=== PATIENT | male | born 1950 | race Caucasian/White ===

== ENCOUNTER 2017-05-11 15:32 | Inpatient (IN) | payer OTHER ==
--- NOTE | 2017-05-11 15:46 | EDPHY ---
H & P Stated Complaint: hx chronic pain/hasn't had any percocet or lorazepam for 2 days n/v HPI/ROS: HPI CHIEF COMPLAINT: Nausea, vomiting, stops his Percocet, out of clonazepam HISTORY OF PRESENT ILLNESS: This patient is 66-year-old male, significant past medical history for chronic pain, and anxiety, hypertension, presents to the emergency room by private vehicle with acute nausea vomiting, diarrhea, cold sweats, abdominal pain hematemesis and bright red blood per rectum after he states he decided to stop taking his Percocet 2 days ago and also ran out of his clonazepam a week ago. Patient states that he thinks he is going through narcotic and benzo withdrawal. Tells me the purposely. His Percocet takes 7.5 mg twice a day. Decided to stop taking this medication on his own will. He abruptly stopped 2 days ago. After that he started developing nausea, vomiting, diarrhea, cold sweats, diffuse abdominal pain, and then today noticed hematemesis. And now has blood in his stool. Past Medical History: Hypertension, chronic pain, anxiety Past Surgical History: Denies recent surgical history Social History: Denies daily use of drugs alcohol tobacco products, former alcohol Family History: Noncontributory ROS REVIEW OF SYSTEMS: A comprehensive 10 point review of systems is otherwise negative aside from elements mentioned in the history of present illness. Exam Constitutional appears well nontoxic, triage nursing summary reviewed, vital signs reviewed, awake/alert. Eyes normal conjunctivae and sclera, EOMI, PERRLA. HENT normal inspection, atraumatic, moist mucus membranes, no epistaxis, neck supple/ no meningismus, no raccoon eyes. Respiratory clear to auscultation bilaterally, normal breath sounds, no respiratory distress, no wheezing. Cardiovascular not tachycardic , regular rhythm, no murmur, no edema, distal pulses normal. Gastrointestinal soft, diffuse tenderness , no rebound, no guarding, normal bowel sounds, no distension, no pulsatile mass. Genitourinary no CVA tenderness. Musculoskeletal no midline vertebral tenderness, full range of motion, no calf swelling, no tenderness of extremities, no meningismus, good pulses, neurovascularly intact. Skin pink, warm, & dry, no rash, skin atraumatic. Neurologic awake, alert and oriented x 3, AAOx3, moves all 4 extremities equally, motor intact, sensory intact, CN II-XII intact, normal cerebellar, normal vision, normal speech. Psychiatric normal mood/affect. Heme/Lymph/Immune no lymphadenopathy. Differential Diagnosis: Includes but is not limited to in a particular order benzo withdrawal, narcotic withdrawal, Rama-Munoz tear, GI bleed, dehydration , electrolyte disturbance, bowel obstruction Medical Decision Making: Plan for this patient IV establishment, IV fluid bolus 1 L normal saline, IV Zofran for nausea, IV Ativan for anxiety, check blood work, occult blood feces, stool studies, CT abdomen pelvis given vomiting and abdominal pain. The EKG due to tachycardia. Re-evaluation: EKG interpretation by me on record in [employer] system. Impression time of EKG 1631, sinus rhythm rate of 90, no prolonged intervals. No acute ischemia appreciated. CT scan of the abdomen pelvis with IV contrast The results of the study are negative for acute intra-abdominal abnormality. No free air, no bowel obstruction or free fluid.. The study was read by . I viewed the images myself on the PACS system. 174: With this patient be admitted to the hospital for acute nausea vomiting hematemesis blood in his stool dehydration, kidney injury, elevated troponin. This may be all due to withdrawal. Currently this time I did re-evaluate him he is feeling better. No acute distress. Vital signs stable. I did speak to the hospitalist service Dr. Vargas She agrees to admit the patient. 180: I spoke with Dr. Blancas with Gastroenterology. Will plan on seeing the patient. 183: Patient remains hemodynamically stable no acute distress. No vomiting blood here. H&H are stable. Hemodynamically stable. Feels better after Zofran, Protonix, Ativan. Source: Patient - Personal History Current Tetanus/Diphtheria Vaccine: Yes - Medical/Surgical History Hx Asthma: No Hx Chronic Respiratory Disease: No Hx Diabetes: No Hx Cardiac Disease: No Hx Renal Disease: No Hx Cirrhosis: No Hx Alcoholism: Yes Hx HIV/AIDS: No Hx Splenectomy or Spleen Trauma: No Other PMH: chronic pain/htn/anxiety pain meds per dr savage/comprehensive pain management - Social History Smoking Status: Never smoked Constitutional: Initial Vital Signs Temperature (C) 36.7 C 05/11/17 15:41 Heart Rate 128 H 05/11/17 15:41 Respiratory Rate 22 H 05/11/17 15:41 Blood Pressure 104/50 L 05/11/17 15:41 O2 Sat (%) 98 05/11/17 15:41 O2 Delivery Mode Nasal Cannula O2 (L/minute) 2 Allergies/Adverse Reactions: Penicillins Allergy (Verified 05/11/17 18:22) swelling Home Medications: Medication Instructions Recorded Amlodipine Besylate [Norvasc] 5 mg PO DAILY 05/11/17 clonAZEPAM [Klonopin] 1 - 2 mg PO DAILY PRN 05/11/17 oxyCODONE HCL/ACETAMINOPHEN 1 each PO BID PRN 05/11/17 [Percocet 7.5-325 mg Tablet] Medical Decision Making - Diagnostics Imaging Results: Imaging Impressions Abdomen CT 05/11/17 16:06 Impression: 1. Bilateral nephrolithiasis, without hydronephrosis. 2. Lumbar degenerative disk disease, and mild dextroscoliosis. 3. Diverticulosis of sigmoid colon. I telephoned results to Dr. Eddie Moffett at 1745 hours. - Data Points Laboratory Results: Laboratory Results 05/11/17 16:00 05/11/17 16:00 05/11/17 05/11/17 05/11/17 16:00 16:00 16:00 WBC RBC Hgb Hct MCV MCH MCHC RDW Plt Count MPV Neut % (Auto) Lymph % (Auto) [place] % (Auto) Eos % (Auto) Baso % (Auto) Nucleat RBC Rel Count Absolute Neuts (auto) Absolute Lymphs (auto) Absolute Monos (auto) Absolute Eos (auto) Absolute Basos (auto) Absolute Nucleated RBC Immature Gran % Immature Gran # PT 15.3 SEC H SEC (12.0-15.0) INR 1.21 H (0.83-1.16) APTT 24.3 SEC SEC (23.0-38.0) Sodium 146 mEq/L H mEq/L (134-144) Potassium 3.8 mEq/L mEq/L (3.5-5.2) Chloride 107 mEq/L mEq/L (97-110) Carbon Dioxide 16 mEq/l L mEq/l (22-31) Anion Gap 23 mEq/L H mEq/L (8-16) BUN 26 mg/dL H mg/dL (7-23) Creatinine 1.5 mg/dL H mg/dL (0.7-1.3) Estimated GFR 47 Glucose 279 mg/dL H mg/dL (70-100) Calcium 9.8 mg/dL mg/dL (8.5-10.4) Total Bilirubin 1.4 mg/dL mg/dL (0.1-1.4) Conjugated Bilirubin 0.2 mg/dL mg/dL (0.0-0.5) Unconjugated Bilirubin 1.2 mg/dL H mg/dL (0.0-1.1) AST 47 IU/L IU/L (17-59) ALT 47 IU/L IU/L (21-72) Alkaline Phosphatase 74 IU/L IU/L (38-126) Troponin I 0.036 ng/mL H ng/mL (0-0.034) Total Protein 8.2 g/dL g/dL (6.3-8.2) Albumin 4.4 g/dL g/dL (3.5-5.0) Lipase 18.0 IU/L L IU/L (23-300) Stool Occult Bld Scrn POSITIVE H (NEGATIVE) 05/11/17 16:00 WBC 19.80 10^3/uL H 10^3/uL (3.80-9.50) RBC 4.89 10^6/uL 10^6/uL (4.40-6.38) Hgb 15.7 g/dL g/dL (13.7-17.5) Hct 44.9 % % (40.0-51.0) MCV 91.8 fL fL (81.5-99.8) MCH 32.1 pg pg (27.9-34.1) MCHC 35.0 g/dL g/dL (32.4-36.7) RDW 12.9 % % (11.5-15.2) Plt Count 331 10^3/uL 10^3/uL (150-400) MPV 11.9 fL H fL (8.7-11.7) Neut % (Auto) 72.4 % % (39.3-74.2) Lymph % (Auto) 19.0 % % (15.0-45.0) Ballard % (Auto) 7.4 % % (4.5-13.0) Eos % (Auto) 0.1 % L % (0.6-7.6) Baso % (Auto) 0.4 % % (0.3-1.7) Nucleat RBC Rel Count 0.0 % % (0.0-0.2) Absolute Neuts (auto) 14.36 10^3/uL H 10^3/uL (1.70-6.50) Absolute Lymphs (auto) 3.76 10^3/uL H 10^3/uL (1.00-3.00) Absolute Monos (auto) 1.46 10^3/uL H 10^3/uL (0.30-0.80) Absolute Eos (auto) 0.01 10^3/uL L 10^3/uL (0.03-0.40) Absolute Basos (auto) 0.07 10^3/uL 10^3/uL (0.02-0.10) Absolute Nucleated RBC 0.00 10^3/uL 10^3/uL (0-0.01) Immature Gran % 0.7 % % (0.0-1.1) Immature Gran # 0.14 10^3/uL H 10^3/uL (0.00-0.10) PT INR APTT Sodium Potassium Chloride Carbon Dioxide Anion Gap BUN Creatinine Estimated GFR Glucose Calcium Total Bilirubin Conjugated Bilirubin Unconjugated Bilirubin AST ALT Alkaline Phosphatase Troponin I Total Protein Albumin Lipase Stool Occult Bld Scrn Medications Given: Discontinued Medications Sodium Chloride (Ns) 1,000 mls @ 0 mls/hr IV ONCE ONE; Wide Open PRN Reason: Protocol Stop: 05/11/17 15:54 Last Admin: 05/11/17 16:20 Dose: 1,000 mls Sodium Chloride (Ns) 1,000 mls @ 0 mls/hr IV ONCE ONE PRN Reason: Wide Open Stop: 05/11/17 16:47 Last Admin: 05/11/17 16:53 Dose: 1,000 mls Sodium Chloride (Ns) 1,000 mls @ 3,000 mls/hr IV ONCE ONE Stop: 05/11/17 18:10 Last Admin: 05/11/17 18:05 Dose: 1,000 mls Lorazepam (Ativan Injection) 1 mg IVP EDNOW ONE Stop: 05/11/17 16:07 Last Admin: 05/11/17 16:22 Dose: 1 mg Ondansetron HCl (Zofran) 4 mg IVP EDNOW ONE Stop: 05/11/17 15:54 Last Admin: 05/11/17 16:20 Dose: 4 mg Pantoprazole Sodium (Protonix) 40 mg IVP EDNOW ONE Stop: 05/11/17 16:07 Last Admin: 05/11/17 16:25 Dose: 40 mg Departure - Departure Disposition: [facility] Inpatient Acute Clinical Impression: Dehydration, MAURICE (acute kidney injury) Vomiting Qualifiers: Vomiting type: unspecified Vomiting Intractability: intractable Nausea presence : with nausea Qualified Code(s): R11.2 - Nausea with vomiting, unspecified Hematemesis Qualifiers: Nausea presence: with nausea Qualified Code(s): K92.0 - Hematemesis Condition: Fair
[2017-05-11] MEDS ORDERED: NS 1,000 ML IV ONE ×3 (15:53→17:51)
[2017-05-11] MEDS ORDERED: ONDANSETRON 4 MG/2 ML VIAL IVP ONE (15:53)
[2017-05-11] MEDS ORDERED: LORazepam 2 MG/ML INJ IVP ONE (16:06)
[2017-05-11] MEDS ORDERED: PANTOPRAZOLE SODIUM 40 MG VIAL IVP ONE (16:06)
[2017-05-11] MEDS ORDERED: IOPAMIDOL (ISOVUE-300) 100 ML BTL ONE (16:08)
[2017-05-11] MEDS ORDERED: NS 100 ML BAG IV ONE (16:14)
[2017-05-11 16:21] LABS: % IMMATURE GRANULYOCYTES 0.7 % (0.0-1.1); ABSOLUTE IMMATURE GRANULOCYTES 0.14 10^3/uL (0.00-0.10); ADD DIFF? NO; ADD MORPH? NO; ADD SCAN? NO; ATYPICAL LYMPHOCYTE FLAG 10 (0-99); FRAGMENT RBC FLAG 0 (0-99); HEMATOCRIT 44.9 % (40.0-51.0); HEMOGLOBIN 15.7 g/dL (13.7-17.5); LEFT SHIFT FLG 0 (0-99); LIPEMIA HEMOLYSIS FLAG 90 (0-99); MEAN CELL HEMOGLOBIN 32.1 pg (27.9-34.1); MEAN CELL VOLUME 91.8 fL (81.5-99.8); MEAN PLATELET VOLUME 11.9 fL (8.7-11.7); PLATELET CLUMPS FLAG 0 (0-99); PLATELET COUNT 331 10^3/uL (150-400); RED BLOOD CELL COUNT 4.89 10^6/uL (4.40-6.38); RED CELL DISTRIBUTION WIDTH 12.9 % (11.5-15.2)
[2017-05-11 16:31] LABS: APTT 24.3 SEC (23.0-38.0); INR 1.21 (0.83-1.16); PROTIME(PATIENT) 15.3 SEC (12.0-15.0)
--- NOTE | 2017-05-11 16:32 | CPEKG ---
Heart Rate: 87 RR Interval: 690 P-R Interval: 140 QRSD Interval: 94 QT Interval: 388 QTC Interval: 467 P [place]: 64 QRS [place]: 79 T Wave [place]: 32 EKG Severity - NORMAL ECG - EKG Impression: SINUS RHYTHM Electronically Signed By: Eddie Figueroa 11-May-2017 21:53:49
[2017-05-11 16:36] LABS: ALANINE AMINOTRANSFERASE 47 IU/L (21-72); ALBUMIN 4.4 g/dL (3.5-5.0); ALKALINE PHOSPHATASE 74 IU/L (38-126); ANION GAP 23 mEq/L (8-16); ASPARTATE AMINOTRANSFERASE 47 IU/L (17-59); BILIRUBIN,TOTAL 1.4 mg/dL (0.1-1.4); BILIRUBIN-CONJUGATED 0.2 mg/dL (0.0-0.5); BILIRUBIN-UNCONJUGATED 1.2 mg/dL (0.0-1.1); CALCIUM 9.8 mg/dL (8.5-10.4); CARBON DIOXIDE 16 mEq/l (22-31); CHLORIDE 107 mEq/L (97-110); CREATININE 1.5 mg/dL (0.7-1.3); GLOMERULAR FILTRATION RATE 47; GLUCOSE 279 mg/dL (70-100); POTASSIUM 3.8 mEq/L (3.5-5.2); SODIUM 146 mEq/L (134-144); TOTAL PROTEIN 8.2 g/dL (6.3-8.2)
[2017-05-11 16:46] LABS: TROPONIN I 0.036 ng/mL (0-0.034)
[2017-05-11] MEDS ORDERED: PROMETHAZINE HCL 25 MG/ML INJ IVP PRN (17:51)
[2017-05-11] MEDS ORDERED: ONDANSETRON 4 MG/2 ML VIAL IVP PRN (17:51)
[2017-05-11] MEDS ORDERED: ONDANSETRON DISINTEGRATING 4 MG TAB PO PRN (17:51)
[2017-05-11] MEDS ORDERED: ACETAMINOPHEN 325 MG TAB PO PRN (17:51)
[2017-05-11 18:03] LABS: HEMATOCRIT 44.3 % (40.0-51.0); HEMOGLOBIN 15.6 g/dL (13.7-17.5)
--- NOTE | 2017-05-11 19:29 | GHP ---
[f rep st] HISTORY AND PHYSICAL DATE OF ADMISSION: 05/11/2017 CHIEF COMPLAINT: Hematemesis. HISTORY OF PRESENT ILLNESS: A 66-year-old male with a history of chronic pain secondary to a childh ood elbow injury, chronically on narcotic medications who was self titrating/weaning himself from na rcotics at home. The patient stopped taking these medications approximately 72 hours ago and develo ped rapid onset of nausea and vomiting. The patient had nearly intractable nausea and vomiting for 48 hours when he then developed bright red blood in his vomitus as well as some pink discoloration o f his diarrhea type stools. With this the patient presented to the emergency department. In the ED he endorses some abdominal discomfort, it appears diffuse, endorses loose stools that have a pink t moncho in the toilet, endorses vomit with bright red blood. Denies any chest pain. Denies shortness of breath. Denies vision changes or headache. His overall symptoms of fevers and chills that began at the beginning of this process have seemed to improve as well as his myalgias. The patient has n ot had a full meal in nearly 3 days at this point, has attempted fluid intake to maintain hydration, but has been unsuccessful per his report. Has chronic pain of the left elbow. Denies any new lowe r extremity edema or new rashes. Did have a couple teeth extracted recently but has not had any ant ibiotic exposure. PAST MEDICAL HISTORY: 1. Chronic pain with continuous narcotic dependency. 2. History of alcohol abuse. Has been sober since 1987. 3. History of tobacco dependence. Has not smoked for an extended period of time. SOCIAL HISTORY: Negative for tobacco, alcohol. Patient smokes marijuana occasionally. FAMILY HISTORY: Positive for heart disease in his father who was a testing tech in a meat packing plant and had poor dietary habits. ADVANCED DIRECTIVES: The patient wishes to be do not resuscitate. He has a dear friend, Brenda he wi shes to be his medical decision maker. REVIEW OF SYSTEMS: A 10-point review of systems is negative with the exception of that reported in the HPI. PHYSICAL EXAMINATION: VITAL SIGNS: Blood pressure 102/72, heart rate 128 at presentation, respirat ory rate 22, saturating 98% on room air, 36.7. GENERAL: This is a very pleasant male in no acute d istress. HEENT: Notable for dry mucous membranes. Eye exam is negative for any icterus. CARDIAC: Patient is regular rate and rhythm. PULMONARY: Good respiratory effort. Clear to auscultation b ilaterally. GASTROINTESTINAL: Positive bowel sounds. ABDOMEN: Soft. He is tender throughout the abdomen. MUSCULOSKELETAL: Negative for any lower extremity edema. SKIN: Negative for any rashes . NEUROLOGIC: He is alert and oriented x3. PSYCHIATRIC: He is pleasant and cooperative on interv iew and examination. DATA: White count 19.8, hematocrit 44.9, platelet count 331. INR 1.2. Sodium 146, creatinine 1.5. Troponin 0.036. Hemoccult is positive. CT of the abdomen, which I personally reviewed and interp reted, shows bilateral nephrolithiasis without hydronephrosis and diverticulosis of the sigmoid colo n. EKG, which I personally reviewed and interpreted, shows sinus rhythm, normal axis, normal interv als with no acute ST-T changes. ASSESSMENT AND PLAN: This is a 66-year-old male presenting with hematemesis. 1. Acute hematemesis. Based on the patient's story I am highly suspicious for a possible Rama-W eiss tear. However, we would need to rule out other possible etiologies, including ulcer disease, g astritis. Will admit the patient, make n.p.o. Gastroenterology has been consulted for EGD. We carmel l fluid resuscitate and follow H and H through the course of the night. Will order IV PPI. Based o n history patient does not have a reason for liver disease or varices, will not empirically treat fo r this. Obviously holding NSAID, pain medications until we can visualize with EGD. 2. Acute diarrhea. Very well may be a symptom of narcotic withdrawal. GI pathogen panel has been sent from the emergency department. We will follow up on this. Again, will keep fluid replete and treat with IV antiemetics, and pain medications if necessary. 3. Acute kidney injury. Patient's creatinine is 1.5. Baseline appears to be closer to 1. Will ag gressively fluid resuscitate and recheck in the morning. 4. Indeterminate troponin. The patient denies chest pain, highly suspicious this is more related t o patient's acute withdrawal syndrome. EKG is negative for acute changes. We will recheck a tropon in this evening and follow his clinical course on telemetry. 5. Narcotic dependency with acute withdrawal. The patient appears to physiologically be through th e worst of his withdrawal at this point in time. Will avoid narcotic pain medications if we can. V ital signs are reassuring and his overall symptoms are reassuring. 6. Acute leukocytosis. Patient's white count is 19 at presentation. May be related to an acute path ogen and his GI system may also be related to the acute stress of narcotic withdrawal. Will recheck in the morning. No impaired treatment unless indicated by stool study. Low suspicion for other sour pedro luis of infection at this time. 7. Prophylaxis. Will hold Lovenox as contraindicated in the setting of acute GI bleed. 8. Diet. N.p.o. with IV fluids. 9. Disposition. Expecting greater than 2 midnights as the patient is presenting with acute upper g astrointestinal bleed, indeterminate troponins, and a leukocytosis. Will require monitoring, diagno stic workup, and supportive care. Discussed the case with the emergency room physician. Patient will be triaged to the medical-surgic al floor for GI consultation and monitoring. /[id number]/MODL
[2017-05-11] MEDS: PANTOPRAZOLE SODIUM 40 MG in NS 100 ML IV SCH (21:21)
[2017-05-11] MEDS: NS 1,000 ML IV SCH (21:21)
[2017-05-11] MEDS ORDERED: CLONAZEPAM PO PRN (21:43)
[2017-05-11] MEDS: clonazePAM 1 MG TAB PO PRN (22:45)
[2017-05-12] MEDS: clonazePAM 1 MG TAB PO PRN ×3 (00:15→22:53)
[2017-05-12 05:29] LABS: % IMMATURE GRANULYOCYTES 0.5 % (0.0-1.1); ABSOLUTE IMMATURE GRANULOCYTES 0.06 10^3/uL (0.00-0.10); ADD DIFF? NO; ADD MORPH? NO; ADD SCAN? NO; ATYPICAL LYMPHOCYTE FLAG 10 (0-99); FRAGMENT RBC FLAG 0 (0-99); HEMOGLOBIN 11.3 g/dL (13.7-17.5); LEFT SHIFT FLG 0 (0-99); LIPEMIA HEMOLYSIS FLAG 90 (0-99); MEAN CELL HEMOGLOBIN 32.1 pg (27.9-34.1); MEAN CELL HEMOGLOBIN CONCENTR. 34.2 g/dL (32.4-36.7); MEAN CELL VOLUME 93.8 fL (81.5-99.8); PLATELET CLUMPS FLAG 0 (0-99); PLATELET COUNT 203 10^3/uL (150-400); RED BLOOD CELL COUNT 3.52 10^6/uL (4.40-6.38); RED CELL DISTRIBUTION WIDTH 13.4 % (11.5-15.2)
[2017-05-12 06:03] LABS: ANION GAP 8 mEq/L (8-16); CARBON DIOXIDE 23 mEq/l (22-31); CHLORIDE 114 mEq/L (97-110); CREATININE 1.1 mg/dL (0.7-1.3); GLOMERULAR FILTRATION RATE > 60; GLUCOSE 91 mg/dL (70-100); POTASSIUM 4.3 mEq/L (3.5-5.2); SODIUM 145 mEq/L (134-144)
[2017-05-12 06:12] LABS: TROPONIN I 0.065 ng/mL (0-0.034)
[2017-05-12] MEDS: NS 1,000 ML IV SCH (08:03)
[2017-05-12] MEDS: PANTOPRAZOLE SODIUM 40 MG in NS 100 ML IV SCH ×2 (08:23→20:56)
--- NOTE | 2017-05-12 09:44 | HOSPPROG ---
Hospitalist Progress Note Assessment/Plan: 1. acute GI bleed -likely MW bc of v with narc withdrawal -PPI, GI consult- discussed with Dr Blancas -serial hcts stable, may need EGD if any further indication of bleeding, trial clears -abnl troponin -cardiology consult, discussed care with Dr Campoverde, echo/lexiscan -keep NPO as may need cath -hypoxia -hx TOB distant -O2 prn -DVT prophy -no meds bc of GI Bleed -SCD/TEDs ok -chronic opioids -chose to withdraw on his own (no active sxs now) -sees pain media coordinator as o/p -MAURICE -improving with IVF/rehydration -secondary to n/v from opioid withdraw DNR > 2 mdnts due to evaluation of stability of GIB, cardiac eval Subjective: Very anxious about cost, procedures. No further v/d. Has occ CP ( thinnks from anxiety). Objective: Vital Signs Temp Pulse Resp BP Pulse Ox 98.1 F 66 18 124/73 H 98 05/12/17 07:45 05/12/17 07:45 05/12/17 07:45 05/12/17 07:45 05/12/17 07:45 Laboratory Results 05/12/17 05:05 05/12/17 05:05 05/10/17 05/11/17 05/12/17 11:59 11:59 11:59 Intake Total 3000 Output Total 400 Balance 2600 PT 15.3 SEC (12.0-15.0) H 05/11/17 16:00 INR 1.21 (0.83-1.16) H 05/11/17 16:00 - Time Spent With Patient Time Spent with Patient: greater than 35 minutes Time Spent with Patient: Greater than 35 minutes spent on this patients care, greater than 50% of time spent counseling, educating, and coordinating care regarding the above mentioned plan. - Pending Discharge Pending Discharge Within 48 Hours: Yes Pending Discharge Date: 05/16/17 Pending Discharge Time: 11:00 - Physical Exam Constitutional: no apparent distress, appears nourished, not in pain Eyes: PERRL, anicteric sclera, EOMI Ears, Nose, Mouth, Throat: moist mucous membranes, hearing normal Cardiovascular: regular rate and rhythym, No edema Respiratory: no respiratory distress, no rales or rhonchi, clear to auscultation Gastrointestinal: normoactive bowel sounds, soft, non-tender abdomen, no palpable masses Skin: warm Musculoskeletal: other (strickland) Psychiatric: interacting appropriately, not anxious, not encephalopathic, thought process linear ICD10 Worksheet Patient Problems: Problems Problem Status Onset MAURICE (acute kidney injury) Acute Dehydration Acute Hematemesis Acute Vomiting Acute
--- NOTE | 2017-05-12 09:50 | CPEKG ---
Heart Rate: 66 RR Interval: 909 P-R Interval: 164 QRSD Interval: 82 QT Interval: 416 QTC Interval: 436 P [place]: 28 QRS [place]: 71 T Wave [place]: -3 EKG Severity - ABNORMAL ECG - EKG Impression: SINUS RHYTHM EKG Impression: SUPRAVENTRICULAR BIGEMINY EKG Impression: NONSPECIFIC T ABNORMALITIES, ANTERIOR LEADS Electronically Signed By: Selvin Campoverde 12-May-2017 11:57:58
[2017-05-12 10:06] LABS: HEMATOCRIT 32.7 % (40.0-51.0); HEMOGLOBIN 11.4 g/dL (13.7-17.5); MEAN CELL HEMOGLOBIN 32.3 pg (27.9-34.1); MEAN CELL HEMOGLOBIN CONCENTR. 34.9 g/dL (32.4-36.7); MEAN CELL VOLUME 92.6 fL (81.5-99.8); RED BLOOD CELL COUNT 3.53 10^6/uL (4.40-6.38); RED CELL DISTRIBUTION WIDTH 13.3 % (11.5-15.2)
--- NOTE | 2017-05-12 14:56 | PDCARCONS ---
Cardiology Consult Reason for Consult: Concerns about cardiovascular risk Chief Complaint: Diarrhea, weakness, and malaise Requesting Physician: Hospitalists History of Present Illness: Patient is a 66 y/o male with unremarkable past cardiovascular history (less HTN ), who presents to [facility] after two days of malaise with associated signs and symptoms. No jessika chest pains or pressure have been noted, but the patient did have abdominal pains thought secondary to ongoing nausea with emesis. Blood was also noted in the stool on the second day. Weakness and fatigue have recently been appreciated. Dizziness and fatigue. Family was present in the room today. Patient voiced that he was trying to "detox" off pain meds, and with review of past notes in [place], [facility] Notes were noted. No formal cardiovascular work up has been performed, but the patient, prior to this past weekend, has had no symptoms. Compliance with antihypertensive therapy has reportedly been good. Mild elevation in troponin was noted, as well as acute renal insufficiency ( thought secondary to dehydration). Remainder of the 12 point review of systems was unremarkable (less that which was mentioned in the HPI). History Information - Allergies/Home Medication List Allergies/Adverse Reactions: Penicillins Allergy (Verified 05/11/17 18:22) swelling Home Medications: Amlodipine Besylate [Norvasc] 5 mg PO DAILY 05/11/17 [Last Taken 05/10/17] clonAZEPAM [Klonopin] 1 - 2 mg PO DAILY PRN 05/11/17 [Last Taken Unknown] oxyCODONE HCL/ACETAMINOPHEN [Percocet 7.5-325 mg Tablet] 1 each PO BID PRN 05/11 [Last Taken Unknown] I have personally reviewed and updated: family history, medical history, social history, surgical history - Past Medical History arthritis, GI bleed, hypertension - Surgical History Additional surgical history: numerous ortho surgeries - Family History Positive for: CAD, father with history of CAD younger than 55 - Social History Smoking Status: Former smoker Alcohol Use: Sober (patient with significant alcohol abuse history in past) Drug Use: Other (prescription pain meds) Cardiac History - Cardiac History Cardiac Risk Factors: hypertension (>140/90), age > 65, male Timing/Duration: Days Severity: moderate Severity Scale: 5 Location: epigastric Activities at Onset: none Modifying Factors: improves with: lying down, rest Associated Symptoms: nausea/vomiting, weakness AUGUSTUS Risk Evaluation age greater or equal to 65: yes greater or equal to 3 CAD risk factors: no known CAD(stenosis greater or eqaul to 50%): no ASA use in past 7 days: no severe angina(greater or equal to 2 episodes in 24hrs): no EKG ST changes greater or equal to 0.5mm: no positive cardiac marker: yes Total Score: 2 AUGUSTUS Score: 8.3% risk Physical Exam Temp Pulse Resp BP Pulse Ox 36.7 C 77 18 122/74 H 95 05/12/17 07:45 05/12/17 12:15 05/12/17 12:15 05/12/17 12:15 05/12/17 12:15 O2 (L/minute) 2 Constitutional: no apparent distress, appears nourished, not in pain, unkempt Eyes: PERRL Ears, Nose, Mouth, Throat: moist mucous membranes, hearing normal Cardiovascular: regular rate and rhythym, No systolic murmur, No JVD, No edema Peripheral Pulses: 2+: dorsalis-pedis (R), dorsalis-pedis (L) Respiratory: no respiratory distress, no rales or rhonchi, clear to auscultation Gastrointestinal: normoactive bowel sounds Skin: warm, normal color Musculoskeletal: full muscle strength Neurologic: AAOx3, sensation intact bilaterally, CN II-XII Intact, No weakness Psychiatric: interacting appropriately, not anxious, not encephalopathic Lab and Imaging 05/12/17 10:00 05/12/17 05:05 WBC 12.73 10^3/uL (3.80-9.50) H 05/12/17 10:00 RBC 3.53 10^6/uL (4.40-6.38) L 05/12/17 10:00 Hgb 11.4 g/dL (13.7-17.5) L 05/12/17 10:00 Hct 32.7 % (40.0-51.0) L 05/12/17 10:00 MCV 92.6 fL (81.5-99.8) 05/12/17 10:00 MCH 32.3 pg (27.9-34.1) 05/12/17 10:00 MCHC 34.9 g/dL (32.4-36.7) 05/12/17 10:00 RDW 13.3 % (11.5-15.2) 05/12/17 10:00 Plt Count 214 10^3/uL (150-400) 05/12/17 10:00 MPV 12.0 fL (8.7-11.7) H 05/12/17 05:05 Neut % (Auto) 67.9 % (39.3-74.2) 05/12/17 05:05 Lymph % (Auto) 23.9 % (15.0-45.0) 05/12/17 05:05 [place] % (Auto) 6.8 % (4.5-13.0) 05/12/17 05:05 Eos % (Auto) 0.3 % (0.6-7.6) L 05/12/17 05:05 Baso % (Auto) 0.6 % (0.3-1.7) 05/12/17 05:05 Nucleat RBC Rel Count 0.0 % (0.0-0.2) 05/12/17 05:05 Absolute Neuts (auto) 8.65 10^3/uL (1.70-6.50) H 05/12/17 05:05 Absolute Lymphs (auto) 3.04 10^3/uL (1.00-3.00) H 05/12/17 05:05 Absolute Monos (auto) 0.86 10^3/uL (0.30-0.80) H 05/12/17 05:05 Absolute Eos (auto) 0.04 10^3/uL (0.03-0.40) 05/12/17 05:05 Absolute Basos (auto) 0.07 10^3/uL (0.02-0.10) 05/12/17 05:05 Absolute Nucleated RBC 0.00 10^3/uL (0-0.01) 05/12/17 05:05 Immature Gran % 0.5 % (0.0-1.1) 05/12/17 05:05 Immature Gran # 0.06 10^3/uL (0.00-0.10) 05/12/17 05:05 PT 15.3 SEC (12.0-15.0) H 05/11/17 16:00 INR 1.21 (0.83-1.16) H 05/11/17 16:00 APTT 24.3 SEC (23.0-38.0) 05/11/17 16:00 Sodium 145 mEq/L (134-144) H 05/12/17 05:05 Potassium 4.3 mEq/L (3.5-5.2) 05/12/17 05:05 Chloride 114 mEq/L (97-110) H 05/12/17 05:05 Carbon Dioxide 23 mEq/l (22-31) D 05/12/17 05:05 Anion Gap 8 mEq/L (8-16) 05/12/17 05:05 BUN 25 mg/dL (7-23) H 05/12/17 05:05 Creatinine 1.1 mg/dL (0.7-1.3) 05/12/17 05:05 Estimated GFR > 60 05/12/17 05:05 Glucose 91 mg/dL (70-100) 05/12/17 05:05 Calcium 9.0 mg/dL (8.5-10.4) 05/12/17 05:05 Total Bilirubin 1.4 mg/dL (0.1-1.4) 05/11/17 16:00 Conjugated Bilirubin 0.2 mg/dL (0.0-0.5) 05/11/17 16:00 Unconjugated Bilirubin 1.2 mg/dL (0.0-1.1) H 05/11/17 16:00 AST 47 IU/L (17-59) 05/11/17 16:00 ALT 47 IU/L (21-72) 05/11/17 16:00 Alkaline Phosphatase 74 IU/L (38-126) 05/11/17 16:00 Troponin I 0.065 ng/mL (0-0.034) H 05/12/17 05:05 Total Protein 8.2 g/dL (6.3-8.2) 05/11/17 16:00 Albumin 4.4 g/dL (3.5-5.0) 05/11/17 16:00 Lipase 18.0 IU/L (23-300) L 05/11/17 16:00 Stool Occult Bld Scrn POSITIVE (NEGATIVE) H 05/11/17 16:00 EKG Interpretation: Positive for: normal sinsus rhythm, NS ST wave abnormalities Telemetry: normal sinus rhythm A/P Assessment: Patient is a 66 y/o male with history of HTN, and chronic pain, who attempted to discontinue use of prescription narcotics recently. GI issues (nausea, emesis, blood in stool, and abdominal pains) were noted, but it was the blood in the stool that ultimately led the patient to going to the ER. In the ER, ECG with non specific ST/T wave changes noted. Initial labs without anemia, but after hydration, moderate anemia is noted. Renal insufficiency (also likely secondary to dehydration) resolved with hydration. No complaints of chest pains or pressure. Mild elevation in troponin could be secondary to (a) anemia, or (b) the ARF noted. Plan: Recommendations for patient to have AM assessment of troponin Would obtain echocardiogram for assessment of LVEF and wall motion Patient is a "DNR", but would continue aggressive medical therapy GI consultation is pending for assessment of etiology of the bleeding/anemia that has been noted Would consider MPI testing prior to discharge in the male, over the age of 50 with HTN, and premature family history for heart disease We will follow this patient along.
--- NOTE | 2017-05-12 15:17 | GCON ---
[f rep st] CONSULTATION GASTROENTEROLOGY INPATIENT CONSULTATION DATE OF CONSULTATION: 05/12/2017 REFERRING PHYSICIAN: Angeles Vargas MD REASON FOR CONSULTATION: I was kindly requested to see the patient by Dr. Angeles Vargas in consultation for chief complaint of hematemesis. HISTORY OF PRESENT ILLNESS: He is a 66-year-old white male who has narcotic dependency for chronic pain. Approximately 72 hours ago, he decided to stop taking all of his pain medications. He developed withdrawal at home, including significant nausea and vomiting for a stretch of 48 hours. Toward the end of the 48 hours, he noticed hematemesis. He presented to the hospital, and was admitted. Initially in emergency department, when dehydrated, his hematocrit was 44.9%. Now, it has been 33% x2 values. No further hematemesis. PAST MEDICAL HISTORY: 1. As above. 2. Past alcohol abuse. He has been sober since 1987. 3. Past tobacco dependence. 4. Otherwise, noncontributory. MEDICATIONS: Outpatient include clonazepam, oxycodone (which he stopped), amlodipine. Inpatient medications include IV fluids and pantoprazole 40 mg IV twice a day. SOCIAL HISTORY: As above. FAMILY HISTORY: Negative for similar vomiting. REVIEW OF SYSTEMS: Positive pertinent review of systems as per my HPI. Otherwise, complete review of systems is negative. PHYSICAL EXAM: CONSTITUTIONAL: Pleasant gentleman in no acute distress. SKIN : Warm, dry. EYES: Pupils equal, round, reactive to light and accommodation. EAR, NOSE, MOUTH, and THROAT: Oropharynx without masses, moist mucosa. CARDIOVASCULAR: Normal S2, normal PMI. RESPIRATORY: Lungs clear to auscultation and percussion anteriorly. GASTROINTESTINAL: Abdomen soft, nontender. NEUROLOGIC: Grossly nonfocal, cranial nerves grossly intact. PSYCHIATRIC: Orientation, insight appropriate. MUSCULOSKELETAL: Strength grossly normal throughout, normal station. LABORATORIES: Include normal liver function tests and normal lipase. Otherwise , as above. ASSESSMENT: Hematemesis, after 2 days of significant vomiting while undergoing opiate withdrawal at home. With this clinical scenario, almost certainly represents a Rama-Munoz tear only. Now, at least at this juncture, his hematocrits are stable, and doubt any further active bleeding. PLAN: 1. Agree with serial hematocrits, to make sure they remain stable. If his hematocrits continue to remain stable, would recommend advancing his diet from clears to regular. 2. For now, agree with IV pantoprazole twice a day. However, if his hematocrit again remains stable, this can be switched to an oral PPI daily. Upon discharge, would recommend continuing this for another 6 weeks, to help heal his bleeding source. 3. Once eating well, okay to buff cap his IV. 4. For now, no EGD needed. Certainly, if he was to show signs of recurrent bleeding, such as a drop in his hematocrit, we would then proceed. However, overall, suspect he will do well. I will sign off. Please call if any significant changes in hematocrit, etc. Please call if we can otherwise be of further help. Thank you for allowing me to help in the management of this patient. /[id number]/MODL MTDJodie
[2017-05-12] MEDS: D5W 1/2 NS 1,000 ML IV SCH (22:51)
[2017-05-13 05:11] LABS: HEMOGLOBIN 11.5 g/dL (13.7-17.5); MEAN CELL HEMOGLOBIN 32.1 pg (27.9-34.1); MEAN CELL HEMOGLOBIN CONCENTR. 34.8 g/dL (32.4-36.7); MEAN CELL VOLUME 92.2 fL (81.5-99.8); RED BLOOD CELL COUNT 3.58 10^6/uL (4.40-6.38); RED CELL DISTRIBUTION WIDTH 12.9 % (11.5-15.2)
[2017-05-13 05:26] LABS: ANION GAP 9 mEq/L (8-16); CALCIUM 9.4 mg/dL (8.5-10.4); CARBON DIOXIDE 24 mEq/l (22-31); CHLORIDE 109 mEq/L (97-110); CREATININE 0.9 mg/dL (0.7-1.3); GLOMERULAR FILTRATION RATE > 60; GLUCOSE 112 mg/dL (70-100); POTASSIUM 3.7 mEq/L (3.5-5.2); SODIUM 142 mEq/L (134-144)
[2017-05-13 05:38] LABS: TROPONIN I < 0.012 ng/mL (0-0.034)
[2017-05-13] MEDS: D5W 1/2 NS 1,000 ML IV SCH (09:33)
[2017-05-13] MEDS: PANTOPRAZOLE SODIUM 40 MG in NS 100 ML IV SCH (09:33)
[2017-05-13] MEDS: clonazePAM 1 MG TAB PO PRN (11:01)
--- NOTE | 2017-05-13 12:22 | ECHO ---
[id number] + + [address] : : [place] [address] : : [phone] + + Adult Echocardiographic Report + --------+ :Name: CHARI CHASE FStudy Date: 05/13/2017 08:43 AM BP: 126/77 mm Hg : : Hospital Admission Number: [id number] Locat ion: 390: :: 1950 Gender: Male Height: 72 in : :Age: 66 yrs Race: WH Weight: 200 l b : :Reason For Study: abnl troponins : : BSA: 2.1 mete rs2 : :History: abnl troponins : + --------+ MMode/2D Measurements \T\ Calculations IVSd: 0.94 cm RVDd: 3.3 cm FS: 30.1 % Ao root diam: 3.3 cm LVPWd: 0.92 cm LVIDd: 5.2 cm EDV(Teich): 128.9 ml LVIDs: 3.6 cm ESV(Teich): 55.5 ml EF(Teich): 56.9 % Normal Measurement Values: + + :LVIDd (3.5-5.7cm) IVSd (0.6-1.1cm) LVPWd (0.6-1.1cm) Aortic Root (2.0-3.7cm)Left Atrium (1.5-4.0cm): :LV Vol(d) (76-115ml) LV Vol(s) (29-48ml) Ejec Fraction (50-65%)PV Raimundo (0.6- 1.2m/s) TV Raimundo (0.4-1.0m/s) : :MV E Raimundo (0.8-1.0m/s)MV A Raimundo (0.3-1.0m/s)LVOT Raimundo (0.7-1.2m/s) Asc Ao Raimundo ( 0.9-1.8m/s) : + + Doppler Measurements \T\ Calculations MV E max raimundo: Ao V2 max: LV V1 max: PA V2 max: 62.7 cm/sec 151.0 cm/sec 133.0 cm/sec 97.9 cm/sec MV A max raimundo: Ao max PG: LV V1 max PG: PA max P.3 cm/sec 9.1 mmHg 7.1 mmHg 3.8 mmHg MV E/A: 0.66 MV dec time: 0.24 sec TR max raimundo: 269.0 cm/sec TR max P.9 mmHg RAP systole: 5.0 mmHg RVSP(TR): 33.9 mmHg Left Ventricle The left ventricle is normal in size and function. There is normal left ventricular wall thickness. Ejection Fraction = 60%. No regional wall motion abnormalities noted. Right Ventricle The right ventricle is normal in size and function. Atria The left atrial size is normal. The Left Atrial Volume is 28 ml/m2. Right atrial size is normal. Mitral Valve The mitral valve leaflets appear thickened, but open well. There is no mitral valve stenosis. There is trace mitral regurgitation. Tricuspid Valve The tricuspid valve is normal in structure and function. There is no tricuspid stenosis. There is mild tricuspid regurgitation. Right ventricular systolic pressure is 34mmHg. Estimated RVSP upper limits of normal. Aortic Valve The aortic valve is trileaflet. There is no aortic stenosis. Trace aortic regurgitation. Pulmonic Valve The pulmonic valve is not well visualized. Great Vessels The aortic root is normal size. Pericardium/Pleural There is no pericardial effusion. Conclusion A two-dimensional transthoracic echocardiogram with M-mode and Doppler was performed. (1) Left ventricular systolic ejection fraction was normal (60%) - normal wall motion (2) No left ventricular hypertrophy (3) Diastolic dysfunction was present (4) Normal right ventricular size and function (5) Normal atrial dimensions (6) Physiologic mitral regurgitation (7) Trileaflet aortic valve with trace insufficiency, but no sclerosis or stenosis (8) Mild tricuspid regurgitation - RVSP was within normal limits (9) Poor visualization of the pulmonic valve (10) No comparison echocardiograms Final Reading Physician: Augustine Preciado signed on 05/13/2017 12:21 PM Ordering Physician: ROSEY GREENE Performed By: Marie Calderon
[2017-05-13] MEDS ORDERED: REGADENOSON 0.4 MG/5 ML SYR IVP ONE (15:09)
--- NOTE | 2017-05-13 16:44 | PDCARPN ---
Cardiology Progress Note Assessment/Plan: Assessment: Fatigue / malaise-- Chronic pain. Tried to self detox off pain medication. Slightly Elevated Troponin-- Trop peaked at 0.097, and today normal at 0.012. Nuclear Lexiscan stress test today. Results pending. ECHO today normal with EF 60%. Plan: Further recommendations when MPI resulted. 05/13/17 16:40 Objective: Vital Signs (8 Hrs) Temp Pulse Resp BP Pulse Ox 05/13/17 16:00 36.7 C 70 13 145/77 H 94 05/13/17 11:30 37.1 C 68 12 144/78 H 95 Intake/Output (24 Hrs) 05/12/17 05/13/17 05/14/17 05:59 05:59 05:59 Intake Total 3000 1615 492 Output Total 400 750 Balance 2600 865 492 Intake: Oral (ml) 0 IV Intake (ml) 1200 492 IV Infused (ml) 3000 415 D5w 1/2 Ns 1,000 ml @ 100 323 mls/hr IV CONT YVONNE Rx#: [id number] Pantoprazole Sodium 40 mg 92 In Ns 100 ml @ 200 mls/ hr IV BID YVONNE Rx#: [id number] Output: Urine (ml) 400 750 Urinal 400 750 Other: Weight 90.718 kg Number of Voids Toilet 1 1 Urinal 1 Result Diagrams: 05/13/17 04:59 05/13/17 04:59 Cardiac Labs: Cardiac Lab Results (72 Hrs) 05/13/17 05/12/17 05/11/17 04:59 05:05 23:00 Troponin I < 0.012 0.065 H 0.097 H - Physical Exam Constitutional: no apparent distress Cardiovascular: regular rate and rhythm, no murmurs, no rubs Respiratory: clear to auscultate bilat, no crackles, no wheezes Skin: warm, no edema Neurologic: AAOx3 Psychiatric: cooperative, interactive ICD10 Worksheet Patient Problems: Problems Problem Status Onset MAURICE (acute kidney injury) Acute Dehydration Acute Hematemesis Acute Vomiting Acute
[2017-05-13] MEDS ORDERED: POLYETHYLENE GLYCOL 3350 17 GM PKT PO PRN (20:12)
[2017-05-13] MEDS ORDERED: BISACODYL 10 MG SUPP PR PRN (20:12)
[2017-05-13] MEDS ORDERED: LACTULOSE 20 GM/30 ML UDCUP PO PRN (20:12)
[2017-05-13] MEDS ORDERED: SENNOSIDES/DOCUSATE SODIUM TAB PO PRN (20:12)
[2017-05-13] MEDS ORDERED: MAGNESIUM HYDROXIDE 30 ML UDCUP PO PRN (20:12)
[2017-05-13] MEDS: PANTOPRAZOLE SODIUM 40 MG TAB PO SCH (21:14)
--- NOTE | 2017-05-14 03:12 | CPR ---
[f rep st] NONINVASIVE CARDIAC PROCEDURE REPORT DATE OF PROCEDURE: 05/13/2017 PROCEDURE: Lexiscan nuclear stress test. REASON FOR TEST: Elevated troponins. No history of coronary artery disease. History of hypertension. Baseline EKG shows a sinus rhythm with a rate of 66. He has T-wave inversion in anterior leads. Resting blood pressure 150/82, heart rate 66, oxygen saturation 95%. 1 L of oxygen. LEXISCAN PORTION: Lexiscan was injected rapidly followed by saline flush per protocol. He did experience abdominal discomfort after injection. Heart rate peaked at 96, blood pressure 132/70, oxygen saturation 98%. EKG remained stable. Blood pressure 136/72, heart rate 82, oxygen saturation 97 %. Signs and symptoms are relieved at end of recovery. At this time he currently is stable for nuclear imaging. /[id number]/MODL MTDD
[2017-05-14 05:25] LABS: HEMATOCRIT 34.8 % (40.0-51.0); HEMOGLOBIN 12.3 g/dL (13.7-17.5); MEAN CELL HEMOGLOBIN 32.5 pg (27.9-34.1); MEAN CELL HEMOGLOBIN CONCENTR. 35.3 g/dL (32.4-36.7); MEAN CELL VOLUME 92.1 fL (81.5-99.8); RED BLOOD CELL COUNT 3.78 10^6/uL (4.40-6.38); RED CELL DISTRIBUTION WIDTH 12.8 % (11.5-15.2)
[2017-05-14 05:50] LABS: ANION GAP 11 mEq/L (8-16); CALCIUM 9.6 mg/dL (8.5-10.4); CARBON DIOXIDE 25 mEq/l (22-31); CHLORIDE 107 mEq/L (97-110); GLOMERULAR FILTRATION RATE > 60; GLUCOSE 88 mg/dL (70-100); POTASSIUM 3.8 mEq/L (3.5-5.2); SODIUM 143 mEq/L (134-144)
--- NOTE | 2017-05-14 08:02 | HOSPPROG ---
Hospitalist Progress Note Assessment/Plan: 1. acute GI bleed -likely MW bc of v with narc withdrawal -PPI, GI consult- discussed with Dr Blancas, no EGD at this time, suggests o/p EGD/colonscopy (if C scope due) -serial hcts stable, advance diet after lexiscan (currently NPO in case abnl/ needs cath) -abnl troponin -cardiology consult, decho/lexiscan -keep NPO as may need cath -hypoxia -hx TOB distant -O2 prn, if cotiues, check CXR (? 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 Spoke with him twice, finally agreed to at least do scan. Did OK with clears, no v/d/abd pain. Didn't have chest pain 'until I came in the room.' No SOB. Objective: Vital Signs Temp Pulse Resp BP Pulse Ox 97.6 F 56 L 16 124/72 H 96 05/14/17 07:28 05/14/17 07:28 05/14/17 07:28 05/14/17 07:28 05/14/17 07:28 Laboratory Results 05/14/17 04:45 05/14/17 04:45 05/12/17 05/13/17 05/14/17 11:59 11:59 11:59 Intake Total 3000 2107 1250 Output Total 623 036 8968 Balance 2600 1357 250 PT 15.3 SEC (12.0-15.0) H 05/11/17 16:00 INR 1.21 (0.83-1.16) H 05/11/17 16:00 - Physical Exam Constitutional: no apparent distress, appears nourished, not in pain Eyes: PERRL, anicteric sclera, EOMI Ears, Nose, Mouth, Throat: moist mucous membranes, hearing normal Cardiovascular: regular rate and rhythym, No edema Respiratory: no respiratory distress, no rales or rhonchi, clear to auscultation Gastrointestinal: normoactive bowel sounds, soft, non-tender abdomen, no palpable masses Skin: warm Musculoskeletal: full muscle strength Psychiatric: interacting appropriately, not anxious, not encephalopathic, thought process linear ICD10 Worksheet Patient Problems: Problems Problem Status Onset MAURICE (acute kidney injury) Acute Dehydration Acute Hematemesis Acute Vomiting Acute
[2017-05-14] MEDS: PANTOPRAZOLE SODIUM 40 MG TAB PO SCH (09:05)
[2017-05-14] MEDS: clonazePAM 1 MG TAB PO PRN (10:27)
[2017-05-14 11:47] VITALS: PULSE 72
--- NOTE | 2017-05-14 14:54 | GDS ---
[f rep st] DISCHARGE SUMMARY DISCHARGE DIAGNOSES: 1. Mild upper gastrointestinal bleed, probably Rama-Munoz tear. 2. Acute opioid withdrawal. 3. Noncardiac chest pain. 4. Hypertension. HISTORY: This is a 66-year-old male with a history of chronic pain. He had been on chronic pain me dicines for several years. He wanted to come off his pain medicines. When he reduced from 3 pills to 2, he began developing sweating, nausea, vomiting and developed hematemesis and blood tinged stoo ls. HOSPITAL COURSE: Patient was admitted. Gastroenterology was consulted. They felt that he could be monitored off without getting EGD. They thought that this is probably Rama-Munoz tear. His hem oglobin has remained completely stable. Because of chest pain, he underwent stress testing, which w as negative. He is tolerating a regular diet and will be discharged home. TIME SPENT: Greater than 30 minutes spent. /[id number]/MODL
[2017-05-14 15:45] VITALS: BP 109/70; RESP 14; TEMP 97.7; O2SAT 94
== END 2017-05-14 16:45 | disposition home or self-care (01) | DRG 369 ==
LOC: F3E 19:30
PROVIDERS: ADMIT Hospitalist; ATTEND Internal Medicine
DX: K22.6 Gastro-esophageal laceration-hemorrhage syndrome (principal); F11.23 Opioid dependence with withdrawal; N17.9 Acute kidney failure, unspecified; R07.89 Other chest pain; I10 Essential (primary) hypertension; D64.9 Anemia, unspecified; G89.29 Other chronic pain; Z87.891 Personal history of nicotine dependence; Z66 Do not resuscitate
CPT/HCPCS: A9500; J2060; J2405; J2785; Q9967

== ENCOUNTER → 2018-01-05 | Outpatient (CLI) | payer OTHER | LOC: FIMAGING 09:24 | PROVIDERS: ATTEND Physician Assistant | DX: M79.641 Pain in right hand (principal); M19.041 Primary osteoarthritis, right hand ==